=== PATIENT | female | born 1990 | race Two or more races ===

== ENCOUNTER 2023-02-12 03:12 | Observation (INO) | payer MEDICAID, OTHER ==
[~2023-02-12] VITALS: Ht 160 cm; Wt 131.1 kg
[2023-02-12] MEDS ORDERED: PREN-96 OR (04:54)
== END 2023-02-12 05:48 | disposition home or self-care (01) ==
LOC: LDRP 03:12
PROVIDERS: ADMIT Obstetrics & Gynecology; ATTEND Obstetrics & Gynecology
DX: O26.893 Other specified pregnancy related conditions, third trimester (principal); R03.0 Elevated blood-pressure reading, without diagnosis of hypertension; O34.33 Maternal care for cervical incompetence, third trimester; O62.9 Abnormality of forces of labor, unspecified; Z3A.38 38 weeks gestation of pregnancy; Z98.891 History of uterine scar from previous surgery
CPT/HCPCS: 59025; 81002; G0378